=== PATIENT | male | born 1990 | race Caucasian/White ===

== ENCOUNTER 2019-01-15 11:10 | Emergency (ER) | payer SELFPAY ==
[~2019-01-15] VITALS: Ht 190.5 cm; Wt 95.3 kg
[2019-01-15 11:41] VITALS: BP 153/75
--- NOTE | 2019-01-15 11:51 | PHYS DOC ---
Adult General Chief Complaint Chief Complaint: FINGER INJURY HPI HPI Patient is a 28 year old male with no significant medical history who presents to the ED today complaining of infection to the left index finger. Patient states a week and a half ago he was picking his yard and got cut by a piece of metal on the ground. Patient states for the last 3 or 4 days is noted redness to the area and possible pus. Patient denies any fever. States he is able to move the finger adequately. Patient is right-handed. Review of Systems Review of Systems Constitutional: Denies fever or chills [] Musculoskeletal: Denies back pain or joint pain [] Integument: Reports left index finger infection Neurologic: Denies headache, focal weakness or sensory changes [] All other systems were reviewed and found to be within normal limits, except as documented in this note. Current Medications Current Medications Current Medications Medications (Trade) Dose Ordered Sig/Annalisa Start Time Stop Time Status Last Admin Dose Admin Diphtheria/ Tetanus/Acell Pertussis (Boostrix) 0.5 ml ONCE ONCE 01/15/19 12:00 01/15/19 12:01 DC 01/15/19 12:17 0.5 ML Allergies Allergies Allergies Coded Allergies Type Severity Reaction Last Updated Verified No Known Drug Allergies 01/15/19 No Physical Exam Physical Exam Constitutional: Well developed, well nourished, no acute distress, non-toxic appearance. [] Skin: Warm, dry, no erythema, no rash. [] Back: No tenderness, no CVA tenderness. [] Extremities: Left index finger at the PIP joint ulnar aspect with an area of induration approximately 1 x 1 cm with surrounding approximately 2 cm of cellulitis. The area is warm tender to touch and very fluctuant. Patient able to flex and extend the finger at the MIP PIP and DIP joints. Adequate radius sensation to the left index finger. +2 left radial pulse. Cap refill less than 2 seconds the left index finger Neurological: Alert and oriented X 3, normal motor function, normal sensory function, no focal deficits noted. [] Psychologic: Affect normal, judgement normal, mood normal. [] Current Patient Data Vital Signs Vital Signs Date Time Temp Pulse Resp B/P (MAP) Pulse Ox O2 Delivery O2 Flow Rate FiO2 01/15/19 11:41 98.0 89 16 153/75 (101) 99 Room Air 98.0 EKG EKG [] Radiology/Procedures Radiology/Procedures Indication: abscess left index finger Procedure: The patient was positioned appropriately. Local anesthesia was notably cable. An incision was then made over the apex of the lesion with an 11 blade and mild amount of yellow bloody material was expressed. The drainage cavity was irrigated and covered with sterile gauze. The patients tetanus status updated as needed. The patient tolerated the procedure well. Complications: none.[] Course & Med Decision Making Course & Med Decision Making Pertinent Labs and Imaging studies reviewed. (See chart for details) This is a 28-year-old male patient presenting to the ED today with left index finger infection (abscess and cellulitis) after cutting himself on a piece of metal on the ground one and a half weeks ago. The abscess was drained as noted in procedures by me. Tetanus was updated. Left index finger x-rays are negative. Patient was discharged on Bactrim and cephalexin. Wound care instructions and return precautions provided. Dragon Disclaimer Dragon Disclaimer This electronic medical record was generated, in whole or in part, using a voice recognition dictation system. Departure Departure Impression: Primary Impression: Abscess of left index finger Additional Impression: Cellulitis of left index finger Disposition: HOME, SELF-CARE Condition: STABLE Referrals: NO PCP (PCP) Follow up with the primary care doctor in the next 1-2 weeks Patient Instructions: Abscess, Care After Additional Instructions: You were seen for cellulitis and abscess of the left index finger. We opened it and drained it in the emergency room. We encourage you to soak it in warm water with Epsom salts twice a day. Take the prescribed antibiotics until completed. Follow-up with your doctor in 1-2 weeks, come back to the ED at any point symptoms worsen. Scripts Cephalexin (CEPHALEXIN) 500 Mg Tablet 1 TAB PO QID, #40 TAB Prov: ROBI WALDRON APRN 01/15/19 Sulfamethoxazole/Trimethoprim (BACTRIM 400-80 MG TABLET) 1 Each Tablet 1 TAB PO BID, #20 TAB Prov: ROBI WALDRON APRN 01/15/19 Problem Qualifiers ROBI WALDRON APRN Jan 15, 2019 11:51
[2019-01-15] MEDS ORDERED: DIPHTH,PERTUSS(ACELL),TET TOX 0.5 ML DISP.SYRIN. VAX IM ONE (12:00)
--- NOTE | 2019-01-15 12:33 | RAD ---
Three views Left finger: Clinical History: Laceration one and half weeks ago, swelling. Technique: AP view of the hand, as well as lateral and oblique collimated views of the index finger were obtained. Comparison: None. Findings: The visualized osseous structures appear normal. There is no radiopaque foreign body. Impression: No acute findings. Electronically signed by: Ishmael Paniagua III, MD (01/15/2019 12:30 PM) [id number]
[2019-01-15] MEDS ORDERED: CEPH500T PO (12:52)
[2019-01-15] MEDS ORDERED: SULF1TAB23 PO (12:52)
== END 2019-01-15 13:13 | disposition home or self-care (01) ==
LOC: ER 11:10
DX: L02.512 Cutaneous abscess of left hand (principal); L03.012 Cellulitis of left finger
CPT/HCPCS: 10060; 73140; 90471; 90715; 99284

== ENCOUNTER 2020-08-30 03:05 | Emergency (ER) | payer SELFPAY ==
[~2020-08-30] VITALS: Ht 190.5 cm; Wt 87.8 kg
[~2020-08-30 03:05] MED LIST: CEPH500T PO; SULF1TAB23 PO
[2020-08-30 03:20] VITALS: BP 148/75
[2020-08-30] MEDS ORDERED: SULF1TAB24 PO (03:26)
--- NOTE | 2020-08-30 03:26 | PHYS DOC ---
Past Medical History Past Medical History: No Pertinent History Past Surgical History: No Surgical History Smoking Status: Current Every Day Smoker Alcohol Use: None Drug Use: None General Adult EDM: Chief Complaint: facial pain HPI: HPI: Patient is a 30 year old male presents with a 1 day history of facial pain. Patient woke up yesterday with some mild pain and swelling to his right cheek extending to his right naris. Over the last 24 hours this pain has gotten more intense and the swelling is gotten worse. Patient says at rest the pain is 2 out of 10 but gets more severe with palpation. Pain is nonradiating. Patient denies any fever, chills, cough or dental pain. Patient denies any difficulty breathing. Review of Systems: Review of Systems: Constitutional: Denies fever or chills. [] Eyes: Denies change in visual acuity. [] HENT: Denies nasal congestion or sore throat. [] Respiratory: Denies cough or shortness of breath. [] Cardiovascular: Denies chest pain or edema. [] GI: Denies abdominal pain, nausea, vomiting, bloody stools or diarrhea. [] : Denies dysuria. [] Musculoskeletal: Denies back pain or joint pain. [] Integument: Denies rash. [] Neurologic: Denies headache, focal weakness or sensory changes. [] Endocrine: Denies polyuria or polydipsia. [] Lymphatic: Denies swollen glands. [] Psychiatric: Denies depression or anxiety. [] Heart Score: Risk Factors: Risk Factors: DM, Current or recent (<one month) smoker, HTN, HLP, family history of CAD, obesity. Risk Scores: Score 0 - 3: 2.5% MACE over next 6 weeks - Discharge Home Score 4 - 6: 20.3% MACE over next 6 weeks - Admit for Clinical Observation Score 7 - 10: 72.7% MACE over next 6 weeks - Early Invasive Strategies Allergies: Allergies: Allergies Coded Allergies Type Severity Reaction Last Updated Verified No Known Drug Allergies 01/15/19 No Physical Exam: PE: Constitutional: Well developed, well nourished, no acute distress, non-toxic appearance. [] HENT: Atraumatic, mild swelling with induration on the right cheek into the right lateral naris. No drainable abscess. No obvious dental abscess. No significant gingival swelling Eyes: PERRLA, EOMI, conjunctiva normal, no discharge. [] No pain with extraocular movement Neck: Normal range of motion, no tenderness, supple, no stridor. [] Cardiovascular:Heart rate regular rhythm, no murmur [] Lungs & Thorax: Bilateral breath sounds clear, no respiratory distress Abdomen: soft, no tenderness, no masses, no pulsatile masses. [] Skin: Warm, dry, no erythema, no rash. [] Mild erythema to the right face Back: No tenderness, no CVA tenderness. [] Extremities: No tenderness, no cyanosis, no clubbing, ROM intact, no edema. [] Neurologic: Alert and oriented X 3, normal motor function, normal sensory function, no focal deficits noted. [] Psychologic: Affect normal, judgement normal, mood normal. [] EKG: EKG: [] Radiology/Procedures: Radiology/Procedures: [] Course & Med Decision Making: Course & Med Decision Making Pertinent Labs and Imaging studies reviewed. (See chart for details) [] 30-year-old male presents with signs and symptoms consistent with a early facial abscess. There is no drainable collection at this time. There is no evidence of periorbital or orbital cellulitis. Patient was placed on antibiotics and told to use warm compresses. Patient given return precautions. Dragtherese Disclaimer: Michelle Disclaimer: This electronic medical record was generated, in whole or in part, using a voice recognition dictation system. Departure Departure Impression: Primary Impression: Facial abscess Disposition: 01 DC HOME SELF CARE/HOMELESS Condition: STABLE Referrals: NO PCP (PCP) [facility] [address] [place] [address] [facility]ly [facility], [facility] [address] [place] [address] [facility] [address] Patient Instructions: Abscess Additional Instructions: EMERGENCY DEPARTMENT GENERAL DISCHARGE INSTRUCTIONS THANK YOU for coming to [facility] Emergency Department (ED) today and trusting us with your care. We trust that you had a positive experience in our Emergency Department. If you wish to speak to the department Management you can contact the emergency department coordinator at . YOUR FOLLOW UP INSTRUCTIONS ARE FOLLOWS: Do you have a private doctor? If you do not have a private doctor, please ask for a resource list of physicians or clinics that may be able to assist you with follow up care. The Emergency Physician has interpreted your x-rays. The X-ray specialist will also review them. If there is a change in the findings you will be notified in 48 hours when at all possible. A lab test or lab culture may have been done, your results will be reviewed and you will be notified if you need a change in treatment. ADDITIONAL INSTRUCTIONS AND INFORMATION Your care today has been supervised by a physician who is specially trained in emergency care. Many problems require more than one evaluation for a complete diagnosis and treatment. We recommend that you schedule your follow up appointment as recommended to ensure complete treatment of your illness or injury. If you are unable to obtain follow up care and continue to have a problem, or if your condition worsens we recommend that you return to the ED. We are not able to safely determine your condition over the phone nor are we ab le to give sound medical advice over the phone. For these safety reasons, if you call for medical advice we will ask you to come to the ED for further evaluation If you have any questions regarding these discharge instructions please call the ED at . SAFETY INFORMATION In the interest of safety, wellness, and injury prevention; we encourage you to wear your seatbelt, if you smoke; quit smoking, and we encourage your family to use protective helmet for bicycling and other sporting events that present an increased risk for head injury. IF YOUR SYMPTOMS WORSEN OR NEW SYMPTOMS DEVELOP, OR YOU HAVE CONCERNS ABOUT YOUR CONDITION; OR IF YOUR CONDITION WORSENS WHILE YOU ARE WAITING FOR YOUR FOLLOW UP APPOINTMENT; EITHER CONTACT YOUR PRIMARY CARE DOCTOR, THE PHYSICIAN WHOSE NAME AND NUMBER YOU WERE GIVEN, OR RETURN TO THE ED IMMEDIATELY. Return if concerns, increased swelling, pain with eye movement or difficulty breathing or difficulty swallowing Scripts Sulfamethoxazole/Trimethoprim (BACTRIM DS TABLET) 1 Each Tablet 1 TAB PO BID for 10 Days, #20 TAB 0 Refills Prov: WALDO THORNTON MD 08/30/20 WALDO THORNTON MD Aug 30, 2020 03:26
[2020-08-30] MEDS ORDERED: SMZ/TMP 800/160MG TABLET. PO ONE (04:00)
== END 2020-08-30 03:50 | disposition home or self-care (01) ==
LOC: ER 03:05
DX: L02.01 Cutaneous abscess of face (principal); F17.200 Nicotine dependence, unspecified, uncomplicated
CPT/HCPCS: 99283